=== PATIENT | male | born 1985 | race Caucasian/White ===

== ENCOUNTER 2021-06-19 13:51 | Outpatient (CLI) | payer OTHER, SELFPAY ==
--- NOTE | ~2021-06-19 | XR_ITS ---
XR chest 2V DATE: 06/19/2021 14:18 INDICATION: Low calcium levels. Smoker for 10 years. TECHNIQUE: PA and lateral views COMPARISON: None FINDINGS: 5. No hilar or mediastinal enlargement. No pulmonary infiltrate or consolidation, pleural effusion or pulmonary vascular congestion or pneumothorax. IMPRESSION: No active cardiopulmonary disease Reviewed, dictated and finalized at location A.
[2021-06-22 10:46] LABS: Parathyroid Intact 39 pg/mL (14-64)
== END 2021-06-19 13:52 | disposition home or self-care (01) ==
PROVIDERS: PCP Family Medicine; Visit Provider Family Medicine
DX: E83.51 Hypocalcemia (principal)
CPT/HCPCS: 36415; 71046; 83970

== ENCOUNTER 2021-06-20 10:17 | Outpatient (CLI) | payer OTHER, SELFPAY ==
--- NOTE | ~2021-06-20 | DEXA_ITS ---
Bone Density Report Name: Boo Jewell Age: 36 Sex: Male Ethnicity: White Date of : 1985 Indication: Osteoporosis Referring Provider: Lulú, Sudheer Study: Bone densitometry was performed. Exam Date: June 20, 2021 Accession number: [id number] Bone Density: Region BMD T-score Z-score Classification AP Spine(L1-L4) 0.910 -1.6 Femoral Neck (Left) 0.756 -0.9 Total Hip (Left) 0.920 -0.6 Femoral Neck (Right) 0.716 -1.2 Total Hip (Right) 0.904 -0.7 Femoral Neck Mean 0.736 -1.0 Total Hip Mean 0.912 -0.6 World Health Organization criteria for BMD impression classify patients as: Normal (T-score at or above -1.0), Osteopenia (T-score between -1.0 and -2.5), or Osteoporosis (T-score at or below -2.5). 10-year Fracture Risk: FRAX not reported because: Man under age 50 Clinical Information Provided by Patient: Smokes Patient maximum height was 67 Impression: The patient's bone mass is within expected range for age, gender and ethnicity. The patient has risk factors, including: smoking. Discussion: BONE DENSITY IS WITHIN EXPECTED LIMITS FOR AGE, SEX AND RACE. Bone density is within expected limits for age, sex and race at all sites measured. The patient should follow a healthful lifestyle (good nutrition with adequate calcium and vitamin D, and appropriate weight-bearing exercise). Follow-Up: Consider repeating this study in 5 years or sooner if there is some new clinical indication. Reported by: Dr. Mando Sierra on 06/20/2021 10:46:00 AM. Reviewed, dictated and finalized at location Meghan HOUSTON
== END 2021-06-20 10:18 | disposition home or self-care (01) ==
LOC: CHSIMG 10:18
PROVIDERS: PCP Physician Assistant; Visit Provider Physician Assistant
DX: M81.0 Age-related osteoporosis without current pathological fracture (principal)
CPT/HCPCS: 77080

== ENCOUNTER 2021-07-04 07:37 | Outpatient (CLI) | payer OTHER, SELFPAY ==
--- NOTE | ~2021-07-04 | NM_ITS ---
EXAMINATION: NM bone scan whole body DATE: 07/04/2021 12:13 INDICATION: Elevated serum calcium TECHNIQUE: 26.8 mCi Tc-99m HDP was administered intravenously. Delayed whole-body scintigrams were o btained. COMPARISON: Chest radiograph dated 06/19/2021 FINDINGS: Normal distribution of bone and soft tissue uptake. No foci of either abnormally increased or decreas ed skeletal uptake. IMPRESSION: 1. Normal study. Reviewed, dictated and finalized at location A. IMPRESSION: 1. Normal study.
== END 2021-07-04 07:38 | disposition home or self-care (01) ==
LOC: CHSIMG 07:39
PROVIDERS: PCP Physician Assistant; Visit Provider Physician Assistant
DX: E83.52 Hypercalcemia (principal)
CPT/HCPCS: 78306; A9561

== ENCOUNTER 2021-11-30 17:59 | Outpatient (CLI) | payer OTHER, SELFPAY ==
[2021-11-30 19:19] LABS: SARS-CoV-2 Ag Negative (Negative)
== END 2021-11-30 18:00 | disposition home or self-care (01) ==
LOC: CHSLAB 18:01
PROVIDERS: PCP Family Medicine; Visit Provider Physician Assistant
DX: Z20.822 Contact with and (suspected) exposure to COVID-19 (principal)
CPT/HCPCS: 87426; C9803

== ENCOUNTER 2022-12-06 12:52 | Outpatient (CLI) | payer OTHER, SELFPAY ==
--- NOTE | ~2022-12-06 | XR_ITS ---
Lumbosacral Spine: AP and lateral views Clinical History: Pain Findings: The normal lordotic curve is maintained. The vertebral bodies and posterior elements are i ntact. The intervertebral disc spaces are preserved. The sacroiliac joints are normally outlined. Impression: No significant abnormality. Reviewed, dictated and finalized at [facility]. 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
== END 2022-12-06 12:53 | disposition home or self-care (01) ==
LOC: CHSIMG 12:55
PROVIDERS: PCP Physician Assistant; Visit Provider Physician Assistant
DX: M54.50 Low back pain, unspecified (principal)
CPT/HCPCS: 72100

== ENCOUNTER 2023-04-15 08:01 | Outpatient (CLI) | payer OTHER, SELFPAY ==
--- NOTE | ~2023-04-15 | CT_ITS ---
EXAMINATION: CT soft tissue neck w con DATE: 04/15/2023 08:36 INDICATION: Hyperparathyroidism. Hypercalcemia. TECHNIQUE: Computed tomography (CT) of the neck was performed with 75 mL Omnipaque-350 intravenous co ntrast. Automated exposure control and iterative reconstruction technique were employed. The dose-beni gth product was 404.83 mGy-cm. COMPARISON: None FINDINGS: There is mild emphysema. There are no pathologically enlarged lymph nodes. The thyroid is n ormal. There is no specific evidence of a parathyroid adenoma. There is mild cervical spondylosis. Th ere is extensive dental disease. IMPRESSION: 1. No specific evidence of a parathyroid adenoma. 2. Extensive dental disease. 3. Mild emphysema. Reviewed, dictated and finalized at location A.
== END 2023-04-15 08:02 | disposition home or self-care (01) ==
LOC: CHSIMG 08:02
PROVIDERS: PCP Physician Assistant; Visit Provider Physician Assistant
DX: E21.3 Hyperparathyroidism, unspecified (principal); K08.89 Other specified disorders of teeth and supporting structures; J43.9 Emphysema, unspecified
CPT/HCPCS: 70491; Q9967

== ENCOUNTER 2023-07-14 13:08 | Emergency (ER) | payer OTHER, SELFPAY ==
[2023-07-14] VITALS (19 sets, daily range): BP systolic 114–139; BP diastolic 74–96; PULSE 56–86; RESP 16–20; TEMP 36.9; O2SAT 98–100
[2023-07-14 13:19] LABS: Glucose Point of Care 89 mg/dl (65-105)
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
--- NOTE | 2023-07-14 14:53 | PC.NURSE ---
[id number] dr lamar in to see patient
[2023-07-14] MEDS: KETOROLAC 30 MG/ML VIAL (*BKC) IM (15:16)
== END 2023-07-14 16:01 | disposition home or self-care (01) ==
PROVIDERS: Emergency Provider Emergency Medicine; PCP Physician Assistant
DX: S16.1XXA Strain of muscle, fascia and tendon at neck level, initial encounter (principal); T59.811A Toxic effect of smoke, accidental (unintentional), initial encounter; I10 Essential (primary) hypertension
CPT/HCPCS: 82948; 96372; 99283; J1885

== ENCOUNTER 2023-11-17 14:27 | Emergency (ER) | payer OTHER, SELFPAY ==
--- NOTE | ~2023-11-17 | CT_ITS ---
EXAMINATION: CT thoracic spine wo con DATE: 11/17/2023 16:02 INDICATION: back pain, night sweats . TECHNIQUE: Computed tomography (CT) of the thoracic spine was performed without intravenous contrast. Automated exposure control and iterative reconstruction technique were employed. The dose-length pro duct was 436.77 mGy-cm. COMPARISON: X-ray chest 06/19/2021 FINDINGS: Vertebral body alignment intact. Vertebral body heights preserved. No disc space narrowing. No traumatic malalignment or fracture. No central canal or neural foraminal narrowing. Dependent ate lectasis. Scattered pulmonary air cysts. IMPRESSION: Normal CT thoracic spine findings. Reviewed, dictated and finalized at location K. D CORNER CUTTER OPERATOR
--- NOTE | ~2023-11-17 | CT_ITS ---
EXAMINATION: CT diagnostic chest w con DATE: 11/17/2023 16:01 INDICATION: night sweats, upper back pain TECHNIQUE: Computed tomography (CT) of the chest was performed with 100 mL Omnipaque-350 intravenous contrast. Automated exposure control and iterative reconstruction technique were employed. The dose-l ength product was 143.95 mGy-cm. COMPARISON: X-ray chest 06/19/2021. FINDINGS: CHEST: Thoracic aorta: No significant dilation or calcification. Lung parenchyma and airways: Dependent atelectasis, scattered small pulmonary cyst, otherwise the danielle gs and airways are clear. Thoracic inlet, axillae and chest wall: No thyroid or soft tissue mass. No axillary lymphadenopathy. Mediastinum: No mass or lymphadenopathy. Heart and pericardium: Normal heart size. No pericardial effusion. Coronary artery calcifications: Absent. Pleura: No effusion or mass. Upper abdomen: No significant finding. Thoracic bones: No acute osseous finding in the chest. IMPRESSION: No acute thoracic process detected. Reviewed, dictated and finalized at location K. UNT SERVICE ASSOCIATE
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
[2023-11-17 14:30] VITALS: BP 143/88; PULSE 92; RESP 18; TEMP 37.3; O2SAT 99
[2023-11-17] MEDS: diazePAM (*CRX) 5 MG TABLET PO (15:03)
[2023-11-17] MEDS: KETOROLAC 30 MG/ML VIAL (*BKC) 15 MG IV PUSH (15:03)
[2023-11-17 15:11] LABS: Basophils Absolute Auto 0.08 K/mm3 (0.00-0.10); Basophils Percent Auto 0.8 % (0.0-1.0); Eosinophils Absolute Auto 0.49 K/mm3 (0.02-0.50); Hemoglobin 16.4 g/dL (14.0-18.0); Immature Granulocyte Absolute 0.04 K/mm3 (0.00-0.00); Immature Granulocyte Percent A 0.4 % (0.0-0.0); Lymphocytes Absolute Auto 2.97 K/mm3 (1.10-4.50); Lymphocytes Percent Auto 30.5 % (18.0-42.0); Mean Corpuscular HGB Conc 32.8 g/dL (32.0-36.0); Mean Corpuscular Hemoglobin 31.2 pg (27.0-31.0); Mean Corpuscular Volume 95.1 fL (78.0-102.0); Mean Platelet Volume 9.4 fl (8.7-11.0); Monocytes Absolute Auto 0.56 K/mm3 (0.10-0.90); Monocytes Percent Auto 5.7 % (2.0-11.0); Neutrophils Absolute Auto 5.6 K/mm3 (1.7-7.2); Neutrophils Percent Auto 57.6 % (50.0-70.0); Platelet Count Result 220 K/mm3 (150-420); Red Blood Count 5.26 M/mm3 (4.70-6.10); Red Cell Distribution Width 13.8 % (11.6-14.4); White Blood Count 9.7 K/mm3 (4.8-10.8)
[2023-11-17 15:30] LABS: Alanine Aminotransferase 72 U/L (16-63); Albumin Level 3.8 g/dL (3.4-5.0); Alkaline Phosphatase 111 U/L (46-116); Anion Gap 4 mmol/L (8-16); Aspartate Amino Transferase 39 U/L (15-37); Bilirubin,Total 0.3 mg/dL (0.00-1.00); Blood Urea Nitrogen 9 mg/dL (7-18); Calcium 9.7 mg/dL (8.5-10.1); Carbon Dioxide 31 mmol/L (21-32); Chloride 101 mmol/L (98-108); Estimated CRCL calculation 76 ml/min; Estimated Glomerular Filt Rate > 60; Glucose 78 mg/dL (70-99); Osmolality Calculated 279 mOsm/kg (285-295); Potassium 3.9 mmol/L (3.5-5.1); Sodium 136 mmol/L (136-145); Total Protein 7.6 g/dL (6.4-8.2)
[2023-11-17 15:43] LABS: CRP < 0.5 mg/dL (0.0-0.9)
[2023-11-17 15:54] LABS: Appearance Urine Clear (Clear); Bilirubin Urine Negative (Negative); Blood Urine Trace-Intact (Negative); Color Urine Yellow (Yellow); Glucose Urine UA Negative (Negative); Ketones Urine Negative (Negative); Leukocyte Esterase Ur Negative LEU/UL (Negative); Nitrate Urine Negative (Negative); Protein Urine Negative (Negative); Urobilinogen Urine 0.2 mg/dL (0.2-1.0)
[2023-11-17 16:12] LABS: Add Urine Microscopic? YES; RBC Urine 0-2 /hpf (0-2)
[2023-11-17 16:19] LABS: Erythrocyte Sedimentation Rate 2 mm/hr (0-15)
[2023-11-17 16:26] LABS: Influenza A QL RT-PCR Negative (Negative); Influenza B QL RT-PCR Negative (Negative); RSV RNA, RT-PCR Negative (Negative); SARS-CoV-2 RNA PCR Negative (Negative)
[2023-11-17 16:42] VITALS: BP 148/72; PULSE 78; RESP 20; O2SAT 98
== END 2023-11-17 16:49 | disposition home or self-care (01) ==
PROVIDERS: Emergency Provider Student in an Organized Health Care Education/Training Program; PCP Physician Assistant
DX: M54.6 Pain in thoracic spine (principal); Z20.822 Contact with and (suspected) exposure to COVID-19
CPT/HCPCS: 36415; 71260; 72128; 80053; 81001; 85025; 85652; 86140; 87637; 96374; 99284; A9270; J1885; Q9967

== ENCOUNTER 2023-12-02 17:30 | Emergency (ER) | payer OTHER, SELFPAY ==
--- NOTE | ~2023-12-02 | XR_ITS ---
EXAM: XR thoracic spine 2V DATE: 12/02/2023 18:40 HISTORY: pain to mid back between shoulder blades x few weeks nki . COMPARISON: None available. FINDINGS: Vertebral body alignment intact. Vertebral body heights preserved. No disc space narrowing . No traumatic malalignment or fracture. Visualized lung parenchyma is clear. IMPRESSION: Unremarkable thoracic spine radiograph findings. Reviewed, dictated and finalized at location K. HER WASHER
[2023-12-02 17:30] VITALS: BP 141/93; PULSE 64; RESP 12; TEMP 36.7; O2SAT 100
--- NOTE | 2023-12-02 17:39 | ED.BACK ---
HPI - Back Pain/Injury General Chief Complaint: Back Pain/Injury Stated Complaint: middle back pain Time Seen by Provider: 12/02/23 17:38 Source: patient Mode of arrival: ambulatory Limitations: no limitations History of Present Illness HPI Narrative: Patient is a 38-year-old male with mid back pain that has come and gone for the past month. He is here with continued pain of the middle back area. He was given Valium last visit and a CT scan of the chest that was negative. No definite injury. MD elicited complaint: back pain ( Thoracic region mid back) Pertinent past history: prior back pain Onset (ago): month(s) (1) Timing: intermittent Severity: moderate Pain scale (0-10): 5 Similar Symptoms Previously: Yes Quality: sharp Location: thoracic spine Radiation: none Exacerbating factors: movement Relieving factors: immobilization Context: other ( no acute injury) Associated symptoms: denies other symptoms Work related injury: No Related Data Allergies Allergy/AdvReac Type Severity Reaction Status Date / Time acetaminophen [From Vicodin] Allergy Unknown Verified 07/14/23 15:02 hydrocodone [From Vicodin] Allergy Unknown Verified 07/14/23 15:02 Review of Systems Review of Systems: All systems reviewed & are unremarkable except as noted in HPI and below Constitutional: Constitutional: Reports no additional constitutional complaints Eyes: Eyes: Reports no additional eye complaints ENT: Reports system reviewed and no additional complaints, except as documented Cardiovascular: Cardiovascular: Reports no additional cardiovascular complaints Respiratory: Respiratory: Reports no additional respiratory complaints Gastrointestinal: Gastrointestinal: Reports no additional gastrointestinal complaints Genitourinary: Genitourinary: Reports no additional male genitourinary complaints Musculoskeletal: Musculoskeletal: Reports no additional musculoskeletal complaints Integumentary/Breasts: Skin/Breast: Reports system reviewed and no additional complaints, except as docu Neurologic: Reports system reviewed and no additional complaints, except as documented Psychiatric: Psychiatric: Reports no additional psychiatric complaints Endocrine: Endocrine: Reports no additional endocrine complaints Hematologic/Lymphatic: Hematologic/Lymphatic: Reports no additional hematologic/lymphatic complaints Allergic/Immunologic: Allergic/Immunologic: Reports no additional allergic/immunologic complaints Exam Const: General: healthy appearing Nutritional Appearance: well nourished Orientation/consciousness: patient oriented x3 HENMT: Head: normal to inspection Ears: external ears normal Face/Nose/Sinus: Normal external nose present Eyes: Conjunctivae: conjunctivae normal Pupils: Equal, round and reactive pupils present EOM: EOMs intact bilaterally Neck: Neck: normal visual inspection Chest: Chest palpation & inspection: normal inspection of the chest Resp: Effort & Inspection: normal respiratory effort, not labored and no retractions Auscultation: clear to auscultation bilaterally, no crackles and no rales Cardio: Rate: regular rate Rhythm: regular rhythm Heart sounds: no murmurs GI: Inspection: non-distended GI Palp: Yes Soft to palpation, No Tenderness to palpation present (GI) and No Guarding due to palpation present (GI) Auscultation: normal bowel sounds : General: Yes bladder normal to palpation Back/Spine/Pelvis: Back: no CVA tenderness Other: tender mid thoracic spine without step-offs or irregularities Skin: General skin exam: normal color Rashes: no rashes Wounds: no wounds Neuro: General: patient oriented x3 Cranial nerves: Yes Nystagmus not present Speech: normal speech Extrem: General: normal to inspection Psych: Mental Status: mental status grossly normal Affect: normal affect Attitude: cooperative Course Vital Signs Vital signs: Vital Signs Temperature 36.7 C 12/02/23 17:30 P
[2023-12-02] MEDS: KETOROLAC (*BKC) 60 MG/2 ML VIAL IM (18:26)
[2023-12-02 20:15] VITALS: BP 125/77; PULSE 74; RESP 16; TEMP 37; O2SAT 98
== END 2023-12-02 20:23 | disposition home or self-care (01) ==
PROVIDERS: Emergency Provider Emergency Medicine; PCP Family Medicine
DX: S23.3XXA Sprain of ligaments of thoracic spine, initial encounter (principal); X58.XXXA Exposure to other specified factors, initial encounter
CPT/HCPCS: 72070; 96372; 99283; J1885

== ENCOUNTER 2023-12-05 09:26 | Outpatient (RCR) | payer OTHER, SELFPAY ==
--- NOTE | 2023-12-05 11:17 | OPREHPOC ---
Outpatient Therapy Plan of Care This is a Multidisciplinary Plan of Care that may contain components documented by all disciplines (PT, OT, and ST.) PT Problem 1 PT Problem #1 Knowledge Deficit PT Goal 1 Goal The patient will be independent in a home exercise program to continue after discharge from formal PT. Target Visit 8 PT Problem 2 PT Problem #2 Pain PT Goal 1 Goal The patient will report no greater than 3/10 pain with repetitive lifting. Target Visit 8 PT Problem 3 PT Problem #3 Impaired Flexibility PT Goal 1 Goal The patient will improve pectoralis flexibility to mild tightness in order to improve posture. Target Visit 8 PT Problem 4 PT Problem #4 Impaired Strength PT Goal 1 Goal The patient will improve middle trapezius and lower trapezius strength to 4-/5 or greater to improve posture and ability to lift. Target Visit 8 PT Problem 5 PT Problem #5 Impaired Functional Mobil PT Goal 1 Goal The patient will demonstrate 25% or less self perceived disability per the Oswestry Back Index. Target Visit 8
--- NOTE | 2023-12-05 11:17 | PTOPEVAL1 ---
Assessment and note entered by Holli Leon, PT Evaluation Information Assessment Status Evaluation Diagnosis Thoracic Back Pain Onset 12/04/23 Subjective Information Boo Jewell reports he has had pain between his shoulder blades for about 3 weeks now. He reports he woke with pain one day without a clear onset reason. He has worse pain with lifting heavy objects and after prolonged laying. 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 He has had similar pain in the past but it would go away after a week or so. This time the pain is more intense and interrupts sleep and his ability to work. He denies numbness or tingling. He is currently on a mm relaxer for pain . Reported Pain Level Pain Score 2: Self Report Assessment PT Clinical Summary Boo Jewell presents with thoracic back pain that started 3 weeks ago. 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 He has difficulty performing his job and sleeping. He objectively demonstrates poor posture, decreased bilateral upper back and scapular muscle strength, decreased pectoralis flexibility, and tenderness in the thoracic paraspinals from T5-T10. He will benefit from skilled PT to address these limitations and to learn proper body mechanics with lifting. Plan of Care Interventions Electrical Stimulation,Hot Pack/Cold Pack,Patient/ Caregiver Educati,Therapeutic Activities, Therapeutic Exercise PT Services Indicated Yes Treatment Frequency and 2 times a week for 8 visits Duration These treatments will address the objective and functional deficits as defined above. The patient will be advanced safely and appropriately in order for the patient to progress towards his/her prior level of function. Additional exercises will be introduced and as well as a comprehensive home exercise program upon discharge, if needed, ?to ensure carryover of functional gains achieved in the clinic. This treatment plan has been reviewed and agreement upon by the patient.
--- NOTE | 2023-12-12 13:17 | PCPTNOTE ---
12/12/22: Pt did not show up for his 10 am appt, he was called and a message was left. -Holli Leon, PT
--- NOTE | 2024-03-05 10:55 | PCPTNOTE ---
03/05/24: Pt was last seen on 12/10/23. He only attended 2 visits and is discharged. -Holli Leon, PT
== END 2023-12-10 20:00 | disposition home or self-care (01) ==
LOC: CHSPT 09:26
PROVIDERS: PCP Family Medicine; Visit Provider Registered Nurse
DX: M54.6 Pain in thoracic spine (principal)
CPT/HCPCS: 97014; 97110; 97140; 97161; G0283

== ENCOUNTER 2024-01-23 07:25 | Outpatient (CLI) | payer OTHER, SELFPAY ==
--- NOTE | ~2024-01-23 | MR_ITS ---
MRI of the thoracic spine Clinical History: Back pain Technique: Axial T2-weighted and gradient images, and sagittal T1-weighted, T2-weighted, and STIR shubham ges were acquired. Findings: There is no fracture or subluxation of the thoracic spine. Vertebral bodies maintain normal height and alignment. No bone marrow signal abnormality seen. No disc bulge or herniation seen at any thoracic level. There is no spinal canal stenosis or cord com pression seen in the thoracic spine. No epidural mass or collection seen. No abnormal signal seen in the spinal cord. Paravertebral soft tissues are unremarkable. Impression: Unremarkable exam. Reviewed, dictated and finalized at location M. E SALES DELIVERY DRIVERS SUPERVISOR Impression: Unremarkable exam.
== END 2024-01-23 07:26 | disposition home or self-care (01) ==
LOC: CHSIMG 07:27
PROVIDERS: PCP Physician Assistant; Visit Provider Physician Assistant
DX: M54.6 Pain in thoracic spine (principal)
CPT/HCPCS: 72146

== ENCOUNTER 2024-10-11 16:27 | Emergency (ER) | payer OTHER, SELFPAY ==
[2024-10-11] VITALS (35 sets, daily range): BP systolic 116–140; BP diastolic 66–94; PULSE 58–92; RESP 11–24; TEMP 36.4–36.8; O2SAT 94–100
--- NOTE | ~2024-10-11 | XR_ITS ---
EXAMINATION: XR chest 1V portable Exam Date/Time: 10/11/2024 17:10 DETACHER HISTORY: Rt. sided chest pain/sob Comparison: 06/19/2021. RESULT: Lines, tubes, and devices: None. Lungs and pleura: Clear. Cardiomediastinal silhouette: Stable. Other: No acute osseous or upper abdominal finding. IMPRESSION: No acute cardiopulmonary process. Reviewed, dictated and finalized at location [facility]
--- NOTE | 2024-10-11 16:28 | ECG_ITS ---
Test Date: 2024-10-11 16:36:26 Measurements Intervals Ferguson Rate: 70 P: 70 DE: 141 QRS: 34 QRSD: 119 T: 50 QT: 366 QTc: 396 Interpretive Statements SINUS RHYTHM INCOMPLETE RIGHT BUNDLE BRANCH BLOCK BASELINE ARTIFACT- I, III, AVR, AVL BORDERLINE ECG No previous ECG available for comparison Electronically Signed On 10-11-2024 18:26:48 SEAT JOINER CHAINSTITCH by Negro Cronin D.O.
--- NOTE | 2024-10-11 16:41 | ED.GENADULT ---
HPI - General Adult General Chief complaint: Chest Pain Stated complaint: chest pain Time Seen by Provider: 10/11/24 16:29 History of Present Illness HPI narrative: Connor is a 49M with a PMH of tobacco use that presented to the ED with chest pain. It started 2 hours ago. It was most severe in his right chest but migrated to his entire chest. No vomiting, lightheadedness, fevers, cough or dyspnea. Related Data Home Medications Medication Instructions Recorded Confirmed No Home Medications 10/11/24 10/11/24 Allergies Allergy/AdvReac Type Severity Reaction Status Date / Time acetaminophen [From Vicodin] Allergy Vomiting Verified 10/11/24 16:37 hydrocodone [From Vicodin] Allergy Vomiting Verified 10/11/24 16:37 Review of Systems Review of Systems: All systems reviewed & are unremarkable except as noted in HPI and below Exam Const: General: cooperative, healthy appearing, comfortable, no acute distress, well developed, alert, awake and Physically active Orientation/consciousness: oriented to person, oriented to place and oriented to time HENMT: Head: normal to inspection, normocephalic and atraumatic Ears: hearing grossly normal bilaterally and external ears normal Face/Nose/Sinus: Normal external nose present Eyes: General: appearance normal, both eyes and all related structures Periorbital: periorbital findings normal Sclera: sclerae normal Pupils: Equal, round and reactive pupils present Neck: Neck: normal visual inspection Chest: Chest palpation & inspection: normal inspection of the chest Resp: Effort & Inspection: normal respiratory effort, able to speak in complete sentences and no respiratory distress Auscultation: clear to auscultation bilaterally Cardio: Jugular venous distension: no JVD Rate: regular rate Rhythm: regular rhythm GI: Inspection: normal to inspection GI Palp: Yes Soft to palpation Auscultation: normal bowel sounds Skin: General skin exam: normal color and no rashes or lesions noted Neuro: General: oriented to person, oriented to place and oriented to time Cranial nerves: Yes Equal, round and reactive pupils present Extrem: General: normal to inspection Course Course Emergency Course: EXAMINATION: XR chest 1V portable Exam Date/Time: 10/11/2024 17:10 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 sided chest pain/sob Comparison: 06/19/2021. RESULT: Lines, tubes, and devices: None. Lungs and pleura: Clear. Cardiomediastinal silhouette: Stable. Other: No acute osseous or upper abdominal finding. IMPRESSION: No acute cardiopulmonary process. EKG showed NSR with a rate of 70, normal axis, no ST elevation/depression Original troponin was negative. As he only has 1 risk factor will repeat in 3 hours. Repeat tropoinin was wnl. Vital Signs Vital signs: Vital Signs Temperature 97.6 F 10/11/24 16:27 Pulse Rate 82 10/11/24 16:27 Respiratory Rate 12 10/11/24 16:27 Blood Pressure 139/94 H 10/11/24 16:27 Pulse Oximetry 99 10/11/24 16:27 Oxygen Delivery Room Air 10/11/24 16:27 Temperature 97.6 F 10/11/24 16:27 Pulse Rate 78 10/11/24 19:25 Respiratory Rate 14 10/11/24 18:45 Blood Pressure 116/66 10/11/24 18:45 Pulse Oximetry 99 10/11/24 18:45 Oxygen Delivery Room Air 10/11/24 19:25 Medical Decision Making Vital Signs Vital Signs: Vital Signs Temperature 97.6 F 10/11/24 16:27 Pulse Rate 82 10/11/24 16:27 Respiratory Rate 12 10/11/24 16:27 Blood Pressure 139/94 H 10/11/24 16:27 Pulse Oximetry 99 10/11/24 16:27 Oxygen Delivery Room Air 10/11/24 16:27 Temperature 97.6 F 10/11/24 16:27 Pulse Rate 78 10/11/24 19:25 Respiratory Rate 14 10/11/24 18:45 Blood Pressure 116/66 10/11/24 18:45 Pulse Oximetry 99 10/11/24 18:45 Oxygen Delivery Room Air 10/11/24 19:25 Lab Data 10/11/24 17:25 10/11/24 17:25 Labs: Lab Results 10/11/24 10/11/24 Range/Units 17:25 21:10 WBC 9.5 (4.8-10.8) K/mm3 RBC 4.77 (4.70-6.10) M/mm3 Hgb 13.9 L (14.0-18.0) g/dL Hct 42.9 (40.0-54.0) % MCV 89.9 (78.0-102.0) fL MCH 29.1 (27.0-31.0) pg MCHC 32.4 (32-36) g/dL RDW 13.1 (11.6-14.4) % Plt Count 320 (150-420) K/mm3 MPV 9.0 (8.7-11.0) fl Immature Gran % (Auto) 0.5 H (0.0-0.0) % Neut % (Auto) 67.0 (50.0-70.0) % Lymph % (Auto) 21.1 (18.0-42.0) % Collier % (Auto) 7.7 (2.0-11.0) % Eos % (Auto) 3.1 (1.0-6.0) % Baso % (Auto) 0.6 (0.0-1.0) % Lymph # (Auto) 2.01 (1.10-4.50) K/mm3 Collier # (Auto) 0.73 (0.10-0.90) K/mm3 Eos # (Auto) 0.30 (0.02-0.50) K/mm3 Baso # (Auto) 0.06 (0.00-0.10) K/mm3 Abs Immat Gran (auto) 0.05 H (0.00-0.00) K/mm3 Absolute Neuts (auto) 6.39 (1.70-7.20) K/mm3 Absolute Nucleated RBC 0.00 (0.00-0.00) K/mm3 Nucleated RBC % 0.0 (0-0.0) % PT 10.3 (9.50-12.1) Seconds INR 0.9 Sodium 140 (136-145) mmol/L Potassium 3.9 (3.5-5.1) mmol/L Chloride 104 (98-108) mmol/L Carbon Dioxide 26 (21-32) mmol/L Anion Gap 10 (4-12) mmol/L BUN 12 (7-18) mg/dL Creatinine 0.91 (0.70-1.30) mg/dL Estim Creat Clear Calc 89 ml/min Estimated GFR > 60 (59 - ) Glucose 95 (70-99) mg/dL Calculated Osmolality 289 (285-295) mOsm/kg Calcium 10.3 H (8.5-10.1) mg/dL Total Bilirubin 0.5 (0.00-1.00) mg/dL AST 26 (15-37) U/L ALT 39 (16-63) U/L Alkaline Phosphatase 106 (46-116) U/L Troponin I < 4.0 < 4.0 (0.00-60.4) ng/L NT-Pro-B Natriuret Pep 20 (0-125) pg/mL Total Protein 7.4 (6.4-8.2) g/dL Albumin 4.0 (3.4-5.0) g/dL Discharge Plan Discharge Clinical Impression: Chest pain Patient Disposition: Home, Self-Care Condition: Stable Instructions: Chest Pain (ED) Prescriptions: No Action No Home Medications Follow-up/Referrals: Lulú,KELLY Willard [Primary Care Provider] -
[2024-10-11] MEDS: ASPIRIN 81 MG CHEWABLE TABLET 324 MG PO (16:53)
[2024-10-11] MEDS: NITROGLYCERIN SL 0.4 MG TABLET SUBLINGUAL (16:55)
--- NOTE | 2024-10-11 17:23 | PC.NURSE ---
Patient reports chest pain at 01/11. ERP aware
[2024-10-11 18:02] LABS: Basophils Absolute Auto 0.06 K/mm3 (0.00-0.10); Basophils Percent Auto 0.6 % (0.0-1.0); Eosinophils Percent Auto 3.1 % (1.0-6.0); Hematocrit 42.9 % (40.0-54.0); Hemoglobin 13.9 g/dL (14.0-18.0); Immature Granulocyte Absolute 0.05 K/mm3 (0.00-0.00); Immature Granulocyte Percent A 0.5 % (0.0-0.0); Lymphocytes Absolute Auto 2.01 K/mm3 (1.10-4.50); Lymphocytes Percent Auto 21.1 % (18.0-42.0); Mean Corpuscular HGB Conc 32.4 g/dL (32-36); Mean Corpuscular Hemoglobin 29.1 pg (27.0-31.0); Mean Corpuscular Volume 89.9 fL (78.0-102.0); Monocytes Absolute Auto 0.73 K/mm3 (0.10-0.90); Monocytes Percent Auto 7.7 % (2.0-11.0); Neutrophils Absolute Auto 6.39 K/mm3 (1.70-7.20); Platelet Count Result 320 K/mm3 (150-420); Red Blood Count 4.77 M/mm3 (4.70-6.10); Red Cell Distribution Width 13.1 % (11.6-14.4); White Blood Count 9.5 K/mm3 (4.8-10.8)
[2024-10-11 18:05] LABS: INR 0.9; Prothrombin Time 10.3 Seconds (9.50-12.1)
[2024-10-11 18:28] LABS: Alanine Aminotransferase 39 U/L (16-63); Anion Gap 10 mmol/L (4-12); Blood Urea Nitrogen 12 mg/dL (7-18); Calcium 10.3 mg/dL (8.5-10.1); Carbon Dioxide 26 mmol/L (21-32); Chloride 104 mmol/L (98-108); Estimated CRCL calculation 89 ml/min; Estimated Glomerular Filt Rate > 60; Glucose 95 mg/dL (70-99); Osmolality Calculated 289 mOsm/kg (285-295); Potassium 3.9 mmol/L (3.5-5.1); Sodium 140 mmol/L (136-145)
[2024-10-11 19:03] LABS: Alkaline Phosphatase 106 U/L (46-116); Aspartate Amino Transferase 26 U/L (15-37); Bilirubin,Total 0.5 mg/dL (0.00-1.00); NT Pro B Type Natriuretic Pept 20 pg/mL (0-125); Total Protein 7.4 g/dL (6.4-8.2)
[2024-10-11 19:05] LABS: Troponin I < 4.0 ng/L (0.00-60.4)
--- NOTE | 2024-10-11 19:20 | PC.NURSE ---
Spoke with patient, denies any chest pain at this time, feels better, no other complaints at this time.
[2024-10-11 21:41] LABS: Troponin I < 4.0 ng/L (0.00-60.4)
== END 2024-10-11 21:54 | disposition home or self-care (01) ==
PROVIDERS: Emergency Provider Family Medicine; PCP Physician Assistant
DX: R07.9 Chest pain, unspecified (principal)
CPT/HCPCS: 36415; 71045; 80053; 83880; 84484; 85025; 85610; 93005; 99284; A9270

== ENCOUNTER 2025-03-15 08:38 | Emergency (ER) | payer OTHER, SELFPAY ==
[2025-03-15 08:40] VITALS: BP 158/81; PULSE 94; RESP 16; TEMP 36.4; O2SAT 99
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
--- OUTSIDE RECORDS SUMMARY | 2025-03-15 08:56 | XMS_ITS | Clinical Summary ---
Author Organization [facility] Address [facility] [place] [address] Care Team Providers Care Cooky Machine Operator Name Role Phone Christopher Lamas MD Primary Care Provider [phone] Social History Tobacco Use Types Packs/Day Years Used Date Smoking Tobacco: Smoker, Current Status Unknown Sex and Gender Information Value Date Recorded Sex Assigned at Not on file Legal Sex Male 7:02 PM CDT Gender Identity Not on file Sexual Orientation Not on file Last Filed Vital Signs Vital Sign Reading Time Taken Comments Blood Pressure 135/85 12/20/2015 10:43 AM PATENT PROSECUTION ATTORNEY Pulse 76 06/17/2014 2:26 PM CDT Temperature - - Respiratory Rate 16 06/17/2014 2:26 PM CDT Oxygen Saturation - - Inhaled Oxygen Concentration - - Weight 61.7 kg (136 lb) 12/20/2015 10:43 AM PATENT PROSECUTION ATTORNEY Height 170.2 cm (5' 7 ) 12/20/2015 10:43 AM PATENT PROSECUTION ATTORNEY Body Mass Index 21.3 12/20/2015 10:43 AM PATENT PROSECUTION ATTORNEY Plan of Treatment Health Maintenance Due Date Last Done Comments Annual Physical 1987 Pneumococcal Vaccine: Pediatrics (0 to 5 Years) and At-Risk Patients (6 to 49 Years) (1 of 2 - PCV) 1990 DTaP, Tdap and Td Vaccines (6 - Tdap) 05/11/1999 05/10/1999, 05/15/1989, 08/03/1987, Additional history exists Hepatitis C 2002 COVID-19 Vaccine ( season) 2024 03/24/2021, 02/24/2021 Hepatitis B Vaccines Completed 11/08/1999, 06/14/1999, 05/10/1999 HPV Vaccines Aged Out No longer eligi ble based on patient's age to complete this topic Meningococcal B Vaccine Aged Out No l onger eligible based on patient's age to complete this topic Meningococcal Vaccine Aged Out No kosta aleksandr eligible based on patient's age to complete this topic RSV Immunizations Under 20 Months Aged Out No longer eligible based on patient's age to complete this topic Insurance [place] Care Teams Cooky Machine Operator Relationship Specialty Start Date End Date Christopher Lamas MD [address] [place] [phone] PCP - General FAMILY PRACTICE 11/26/23
--- OUTSIDE RECORDS SUMMARY | 2025-03-15 08:56 | XMS_ITS | Encounter Summary ---
Author Organization [facility] Address [facility] [place] [address] Care Team Providers Care Phys Asst Name Role Phone Christopher Lamas MD Primary Care Provider [phone] Encounter Details Date Type Department Care Team (Late st Contact Info) Description 05/09/2019 Abstract SFL CONVERSION [address] [place] [address] , Generic Conversion, Social History Tobacco Use Types Packs/Day Years Used Date Smoking Tobacco: Smoker, Current Status Unknown Sex and Gender Information Value Date Recorded Sex Assigned at Not on file Legal Sex Male 7:02 PM CDT Gender Identity Not on file Sexual Orientation Not on file documented as of this encounter Plan of Treatment Not on file documented as of this encounter Visit Diagnoses Not on filedocumented in this encounter Care Teams Phys Asst Relationship Specialty Start Date End Date Christopher Lamas MD [address] [place] [phone] PCP - General FAMILY PRACTICE 11/26/23 documented as of this encounter
--- NOTE | 2025-03-15 09:16 | PC.NURSE ---
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
--- OUTSIDE RECORDS SUMMARY | 2025-03-15 09:49 | XMS_ITS | Encounter Summary ---
Author Organization [facility] Address [facility] [place] [address] Care Team Providers Care Mixed Animal Veterinarian Name Role Phone Christopher Lamas MD Primary Care Provider [phone] Encounter Details Date Type Department Care Team (Late st Contact Info) Description 05/09/2019 Abstract SFL CONVERSION [address] [place] [address] , Generic Conversion, Social History Tobacco Use [...] on filedocumented in this encounter Care Teams Mixed Animal Veterinarian Relationship Specialty Start Date End Date Christopher Lamas MD [address] [place] [phone] PCP - General FAMILY PRACTICE 11/26/23 documented as of this encounter
--- OUTSIDE RECORDS SUMMARY | 2025-03-15 09:49 | XMS_ITS | Clinical Summary ---
Author Organization [facility] [place] [address] Care Team Providers Care Electronic Tech Name Role Phone Christopher Lamas MD Primary Care Provider Social History Tobacco Use Types Packs/Day Years Used Date Smoking Tobacco: Smoker, Current Status Unknown Sex and Gender Information Value Date Recorded Sex Assigned at Not on file Legal Sex Male 7:02 PM CDT Gender Identity Not on file Sexual Orientation Not on file Last Filed Vital Signs Vital Sign Reading Time Taken Comments Blood Pressure 135/85 12/20/2015 10:43 AM INTERIOR MECHANIC Pulse 76 06/17/2014 2:26 PM CDT Temperature - - Respiratory Rate 16 06/17/2014 2:26 PM CDT Oxygen Saturation - - Inhaled Oxygen Concentration - - Weight 61.7 kg (136 lb) 12/20/2015 10:43 AM INTERIOR MECHANIC Height 170.2 cm (5' 7 ) 12/20/2015 10:43 AM INTERIOR MECHANIC Body Mass Index 21.3 12/20/2015 10:43 AM INTERIOR MECHANIC Plan of Treatment Health Maintenance Due Date [...] patient's age to complete this topic Insurance [place] Care Teams Electronic Tech Relationship Specialty Start Date End Date Christopher Lamas MD [address] [place] [phone] PCP - General FAMILY PRACTICE 11/26/23
== END 2025-03-15 09:15 | disposition home or self-care (01) ==
LOC: CHSED 09:10
PROVIDERS: Emergency Provider Emergency Medicine; PCP Physician Assistant
DX: S16.1XXA Strain of muscle, fascia and tendon at neck level, initial encounter (principal); V86.59XA Driver of other special all-terrain or other off-road motor vehicle injured in nontraffic accident, initial encounter
CPT/HCPCS: 99283

== ENCOUNTER 2025-03-30 17:55 | Emergency (ER) | payer OTHER, SELFPAY ==
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
[2025-03-30 17:58] VITALS: BP 136/85; PULSE 78; RESP 20; TEMP 36.8; O2SAT 99
--- OUTSIDE RECORDS SUMMARY | 2025-03-30 17:58 | XMS_ITS | Encounter Summary ---
Author Organization [facility] Address [facility] [place] [address] Care Team Providers Care Stitching Department Supervisor Name Role Phone Christopher Lamas MD Primary Care Provider [phone] Encounter Details Date Type Department Care Team (Late st Contact Info) Description 05/09/2019 Abstract SFL CONVERSION [address] [place] [address] , Generic Conversion, Social History Tobacco Use [...] on filedocumented in this encounter Care Teams Stitching Department Supervisor Relationship Specialty Start Date End Date Christopher Lamas MD [address] [place] [phone] PCP - General FAMILY PRACTICE 11/26/23 documented as of this encounter
--- OUTSIDE RECORDS SUMMARY | 2025-03-30 17:58 | XMS_ITS | Clinical Summary ---
Author Organization [facility] Address [facility] [place] [address] Care Team Providers Care Core Analysis Operator Name Role Phone Christopher Lamas MD Primary Care Provider [phone] Social History Tobacco Use Types Packs/Day Years Used Date Smoking Tobacco: Smoker, Current Status Unknown Sex and Gender Information Value Date Recorded Sex Assigned at Not on file Legal Sex Male 7:02 PM CDT Gender Identity Not on file Sexual Orientation Not on file Last Filed Vital Signs Vital Sign Reading Time Taken Comments Blood Pressure 135/85 12/20/2015 10:43 AM CHIEF OPTOMETRY SERVICE Pulse 76 06/17/2014 2:26 PM CDT Temperature - - Respiratory Rate 16 06/17/2014 2:26 PM CDT Oxygen Saturation - - Inhaled Oxygen Concentration - - Weight 61.7 kg (136 lb) 12/20/2015 10:43 AM CHIEF OPTOMETRY SERVICE Height 170.2 cm (5' 7 ) 12/20/2015 10:43 AM CHIEF OPTOMETRY SERVICE Body Mass Index 21.3 12/20/2015 10:43 AM CHIEF OPTOMETRY SERVICE Plan of Treatment Health Maintenance Due Date Last Done Comments Annual Physical 1987 DTaP, Tdap and Td Vaccines (6 - Tdap) 05/11/1999 05/10/1999, 05/15/1989, 08/03/1987, Additional history exists Hepatitis C 2002 Pneumococcal Vaccine: Pediatrics (0 to 5 Years) and At-Risk Patients (6 to 49 Years) (1 of 2 - PCV) 2003 COVID-19 Vaccine ( season) 2024 03/24/2021, 02/24/2021 [...] patient's age to complete this topic Insurance [place] Care Teams Core Analysis Operator Relationship Specialty Start Date End Date Christopher Lamas MD [address] [place] [phone] PCP - General FAMILY PRACTICE 11/26/23
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
[2025-03-30] MEDS: predniSONE 20 MG TABLET PO (19:45)
[2025-03-30 20:07] VITALS: BP 138/89; PULSE 66; RESP 16; O2SAT 99
== END 2025-03-30 20:08 | disposition home or self-care (01) ==
PROVIDERS: Emergency Provider Emergency Medicine; PCP Physician Assistant
DX: M54.12 Radiculopathy, cervical region (principal); M50.20 Other cervical disc displacement, unspecified cervical region; Z79.899 Other long term (current) drug therapy
CPT/HCPCS: 72125; 99284; J7512

== ENCOUNTER 2025-04-10 09:49 | Outpatient (CLI) | payer OTHER, SELFPAY ==
--- NOTE | ~2025-04-10 | MR_ITS ---
MRI of the cervical spine Clinical History: Pain Technique: Axial T2-weighted and gradient images, and sagittal T1-weighted, T2-weighted, and STIR shubham ges were acquired. Findings: There is reversal normal cervical lordosis. No fracture or sublocation. No bone marrow sign al reality seen. At C2-C3, there is no disc bulge or herniation. No spinal canal stenosis, cord compression, or neural foraminal narrowing. At C3-C4, there is no disc bulge or herniation. No spinal canal stenosis, cord compression, or defini te neural foraminal narrowing. At C4-C5, there is no disc bulge or herniation. No spinal canal stenosis, cord compression, or neural foraminal narrowing. At C5-C6, there is no disc bulge or herniation. No spinal canal stenosis, cord compression, or defini te neural foraminal narrowing. At C6-C7, there is no disc bulge or herniation. No spinal canal stenosis, cord compression, or defini te neural foraminal narrowing. No abnormal signal seen in the spinal cord. Paravertebral soft tissues are unremarkable. Impression: Mild reversal of the normal cervical lordosis, otherwise unremarkable exam. Reviewed, dictated and finalized at [facility]. Impression: Mild reversal of the normal cervical lordosis, otherwise unremarkable exam.
--- OUTSIDE RECORDS SUMMARY | 2025-04-10 09:51 | XMS_ITS | Encounter Summary ---
Author Organization [facility] Address [facility] [place] [address] Care Team Providers Care Rigging Man Name Role Phone Christopher Lamas MD Primary Care Provider [phone]- [phone] Encounter Details Date Type Department Care Team (Late st Contact Info) Description 05/09/2019 Abstract SFL CONVERSION [address] [place] [address] , Generic Conversion, Social History Tobacco Use [...] on filedocumented in this encounter Care Teams Rigging Man Relationship Specialty Start Date End Date Christopher Lamas MD [address] [place] [phone] PCP - General FAMILY PRACTICE 11/26/23 documented as of this encounter
--- OUTSIDE RECORDS SUMMARY | 2025-04-10 09:51 | XMS_ITS | Clinical Summary ---
Author Organization [facility] Address [facility] [place] [address] Care Team Providers Care Hand Candy Dipper Name Role Phone Christopher Lamas MD Primary Care Provider [phone]- [phone] Social History Tobacco Use Types Packs/Day Years Used Date Smoking Tobacco: Smoker, Current Status Unknown Sex and Gender Information Value Date Recorded Sex Assigned at Not on file Legal Sex Male 7:02 PM CDT Gender Identity Not on file Sexual Orientation Not on file Last Filed Vital Signs Vital Sign Reading Time Taken Comments Blood Pressure 135/85 12/20/2015 10:43 AM [facility] Pulse 76 06/17/2014 2:26 PM CDT Temperature - - Respiratory Rate 16 06/17/2014 2:26 PM CDT Oxygen Saturation - - Inhaled Oxygen Concentration - - Weight 61.7 kg (136 lb) 12/20/2015 10:43 AM [facility] Height 170.2 cm (5' 7 ) 12/20/2015 10:43 AM [facility] Body Mass Index 21.3 12/20/2015 10:43 AM [facility] Plan of Treatment Health Maintenance Due Date [...] patient's age to complete this topic Insurance [employer] Care Teams Hand Candy Dipper Relationship Specialty Start Date End Date Christopher Lamas MD [address] [place] [phone] PCP - General FAMILY PRACTICE 11/26/23
== END 2025-04-10 09:50 | disposition home or self-care (01) ==
LOC: CHSIMG 09:50
PROVIDERS: PCP Physician Assistant; Visit Provider Physician Assistant
DX: M50.30 Other cervical disc degeneration, unspecified cervical region (principal); M53.82 Other specified dorsopathies, cervical region
CPT/HCPCS: 72141